=== PATIENT | male | born 1980 | race Caucasian/White ===

== ENCOUNTER 2022-01-08 12:25 | Outpatient (CLI) | payer BC, SELFPAY ==
--- NOTE | 2022-01-08 | DI.RAD_ITS ---
Exam(s) XR WRIST RT COMPLETE EXAM: XR WRIST RT COMPLETE CLINICAL HISTORY: RT WRIST JOINT PAIN M25.531. TECHNIQUE: 2D digital imaging was performed. Three views. COMPARISON: No exams were available for comparison FINDINGS: BONES: No acute fracture is present. No bony destructive lesion is seen. JOINTS: The carpal bones are normally aligned. SOFT TISSUE: Normal. IMPRESSION: Unremarkable radiographs of the right wrist. DATA REPOSITORY: RADIATION DOSE DELIVERED:
== END 2022-01-08 12:45 ==
PROVIDERS: Visit Provider Family Medicine
DX: M25.531 Pain in right wrist (principal)
CPT/HCPCS: 73110